=== PATIENT | male | born 1960 | race Caucasian/White ===

== ENCOUNTER 2021-11-27 18:22 | Inpatient (IN) | payer OTHER ==
[2021-11-27] MEDS ORDERED: SODIUM CHLORIDE 0.9% 500 ML 500 ML IV STA (19:03)
[2021-11-27] MEDS ORDERED: ASPIRIN 81 MG PO STA (19:03)
[2021-11-27] MEDS ORDERED: NITROGLYCERIN OINT 1 INCH/GM PACKET TOPICAL STA (19:03)
[2021-11-27 19:34] LABS: HCT 49.1 % (39.0-53.0); HGB 16.2 gm/dL (13.0-17.5); MCH 32.6 pg (25.0-35.0); MCV 98.9 fL (80.0-100.0); Platelet Count 231 k/uL (150-450); RBC 4.96 m/uL (4.30-5.90); RDW 13.2 % (11.5-15.5); WBC 11.7 k/uL (3.8-10.6)
[2021-11-27 19:37] LABS: ALT 37 U/L (4-49); AST 34 U/L (17-59); African American GFR (CKD) >90 (>60 ml/min/1.73 sqM); Blood Urea Nitrogen 13 mg/dL (9-20); Calcium 9.5 mg/dL (8.4-10.2); Non-African American GFR(CKD) >90 (>60 ml/min/1.73 sqM); Total Bilirubin 0.5 mg/dL (0.2-1.3)
--- NOTE | 2021-11-27 19:37 | ED ---
General Adult HPI - General Chief complaint: Chest Pain Stated complaint: chest pain Time Seen by Provider: 11/27/21 18:45 Source: patient, EMS, RN notes reviewed, old records reviewed Mode of arrival: EMS Limitations: no limitations - History of Present Illness Initial comments: This is a 61-year-old male who has a past medical history significant for smoking has a family history for heart disease and has high blood pressure and has high cholesterol. Patient states today he was exerting himself at work and he had chest pain in the anterior aspect of his chest and it was associated with shortness of breath. Patient stated he stopped sat down or rested after about 10 minutes it went away. Patient denied any difficulty breathing shortness of breath. Patient denied any diaphoretic episodes. Patient denies any nausea vomiting. Patient denies any abdominal pain. Patient denies headache patient denies numbness weakness patient denies any lightheadedness or dizziness. - Related Data Home Medications Medication Instructions Recorded Confirmed lisinopriL [Zestril] 20 mg PO DAILY 11/27/21 11/27/21 Allergies Allergy/AdvReac Type Severity Reaction Status Date / Time No Known Allergies Allergy Verified 11/27/21 19:43 Review of Systems ROS Statement: Those systems with pertinent positive or pertinent negative responses have been documented in the HPI. ROS Other: All systems not noted in ROS Statement are negative. General Exam - General Exam Comments Initial Comments: GENERAL: Patient is well-developed and well-nourished. Patient is nontoxic and well- hydrated and is in mild distress. ENT: Neck is soft and supple. No significant lymphadenopathy is noted. Oropharynx is clear. Moist mucous membranes. Neck has full range of motion without eliciting any pain. EYES: The sclera were anicteric and conjunctiva were pink and moist. Extraocular movements were intact and pupils were equal round and reactive to light. Ey elids were unremarkable. PULMONARY: Unlabored respirations. Good breath sounds bilaterally. No audible rales rhonchi or wheezing was noted. CARDIOVASCULAR: There is a regular rate and rhythm without any murmurs gallops or rubs. ABDOMEN: Soft and nontender with normal bowel sounds. SKIN: Skin is clear with no lesions or rashes and otherwise unremarkable. NEUROLOGIC: Patient is alert and oriented x3. Cranial nerves II through XII are grossly intact. Motor and sensory are also intact. Normal speech, volume and content. Symmetrical smile. MUSCULOSKELETAL: Normal extremities with adequate strength and full range of motion. LYMPHATICS: No significant lymphadenopathy is noted PSYCHIATRIC: Normal psychiatric evaluation. Limitations: no limitations Course Vital Signs 11/27/21 18:45 Temperature 98.6 F Pulse Rate 90 Respiratory 18 Rate Blood Pressure 147/89 O2 Sat by Pulse 96 Oximetry Medical Decision Making - Medical Decision Making EKG shows sinus rhythm at 95 bpm NM interval 126 QRS is 102 QT interval 355 QTC is 408. Patient's EKG shows no ST segment elevation or depression. Chest x-ray shows no acute abnormalities. Patient's been chest pain-free throughout her stay. I spoke with Dr. Kevin Rojas he agreed to admit the patient admitted the patient wrote admitting orders and I consult cardiology. - Lab Data Result diagrams: 11/27/21 19:06 11/27/21 19:06 Lab Results 11/27/21 11/27/21 11/27/21 Range/Units 19:06 19:06 19:06 WBC 11.7 H (3.8-10.6) k/uL RBC 4.96 (4.30-5.90) m/uL Hgb 16.2 (13.0-17.5) gm/dL Hct 49.1 (39.0-53.0) % MCV 98.9 (80.0-100.0) fL MCH 32.6 (25.0-35.0) pg MCHC 33.0 (31.0-37.0) g/dL RDW 13.2 (11.5-15.5) % Plt Count 231 (150-450) k/uL MPV 8.0 PT 10.6 (9.0-12.0) sec INR 1.0 (<1.2) APTT 25.9 (22.0-30.0) sec Sodium 138 (137-145) mmol/L Potassium 4.0 (3.5-5.1) mmol/L Chloride 106 (98-107) mmol/L Carbon Dioxide 24 (22-30) mmol/L Anion Gap 8 mmol/L BUN 13 (9-20) mg/dL Creatinine 0.80 (0.66-1.25) mg/dL Est GFR (CKD-EPI)AfAm >90 (>60 ml/min/1.73 sqM) Est GFR (CKD-EPI)NonAf >90 (>60 ml/min/1.73 sqM) Glucose 101 H (74-99) mg/dL Calcium 9.5 (8.4-10.2) mg/dL Magnesium 1.8 (1.6-2.3) mg/dL Total Bilirubin 0.5 (0.2-1.3) mg/dL AST 34 (17-59) U/L ALT 37 (4-49) U/L Alkaline Phosphatase 87 (38-126) U/L Troponin I (0.000-0.034) ng/mL Total Protein 7.6 (6.3-8.2) g/dL Albumin 4.4 (3.5-5.0) g/dL 11/27/21 Range/Units 19:06 WBC (3.8-10.6) k/uL RBC (4.30-5.90) m/uL Hgb (13.0-17.5) gm/dL Hct (39.0-53.0) % MCV (80.0-100.0) fL MCH (25.0-35.0) pg MCHC (31.0-37.0) g/dL RDW (11.5-15.5) % Plt Count (150-450) k/uL MPV PT (9.0-12.0) sec INR (<1.2) APTT (22.0-30.0) sec Sodium (137-145) mmol/L Potassium (3.5-5.1) mmol/L Chloride (98-107) mmol/L Carbon Dioxide (22-30) mmol/L Anion Gap mmol/L BUN (9-20) mg/dL Creatinine (0.66-1.25) mg/dL Est GFR (CKD-EPI)AfAm (>60 ml/min/1.73 sqM) Est GFR (CKD-EPI)NonAf (>60 ml/min/1.73 sqM) Glucose (74-99) mg/dL Calcium (8.4-10.2) mg/dL Magnesium (1.6-2.3) mg/dL Total Bilirubin (0.2-1.3) mg/dL AST (17-59) U/L ALT (4-49) U/L Alkaline Phosphatase (38-126) U/L Troponin I 0.029 (0.000-0.034) ng/mL Total Protein (6.3-8.2) g/dL Albumin (3.5-5.0) g/dL Disposition Clinical Impression: Chest pain Disposition: ADMITTED IP TO THIS HOSP Referrals: Vaughn Garg MD [Primary Care Provider] - 1-2 days Time of Disposition: 20:12
[2021-11-27 19:40] LABS: Partial Thromboplastin Time 25.9 sec (22.0-30.0); Prothrombin Time 10.6 sec (9.0-12.0)
[2021-11-27 19:45] LABS: Albumin 4.4 g/dL (3.5-5.0); Alkaline Phosphatase 87 U/L (38-126); Anion Gap 8 mmol/L; Carbon Dioxide 24 mmol/L (22-30); Chloride 106 mmol/L (98-107); Glucose 101 mg/dL (74-99); Magnesium 1.8 mg/dL (1.6-2.3); Sodium 138 mmol/L (137-145); Total Protein 7.6 g/dL (6.3-8.2)
[2021-11-27] MEDS ORDERED: NITROGLYCERIN SL TABS 0.4 MG TAB SUBLINGUAL PRN (20:13)
--- NOTE | 2021-11-27 20:29 | XR ---
EXAMINATION TYPE: XR chest 2V DATE OF EXAM: 11/27/2021 7:43 PM COMPARISON: None TECHNIQUE: XR chest 2V Frontal and lateral views of the chest. CLINICAL INDICATION:Male, 61 years old with history of Chest Pain; FINDINGS: Lungs/Pleura: There is no evidence of pleural effusion, focal consolidation, or pneumothorax. Pulmonary vascularity: Unremarkable. Heart/mediastinum: Cardiomediastinal silhouette is unremarkable. Musculoskeletal: No acute osseous pathology. IMPRESSION: No acute cardiopulmonary disease/process.
[2021-11-27 20:30] LABS: Band Neutrophils % 1 %; Eosinophils # (M) 0.12 k/uL (0-0.7); Lymphocytes # (M) 1.87 k/uL (1.0-4.8); Monocytes # (M) 0.47 k/uL (0-1.0); Neutrophils % (M) 78 %; Nucleated Red Blood Cells 0 /100 WBC (0-0); Total Cells Counted 100
[2021-11-27 20:32] LABS: Anisocytosis (M) Present
[2021-11-27 20:33] LABS: Large Platelets Present
[2021-11-27] MEDS ORDERED: HEPARIN SODIUM 1,000 UN/ML (10ML VL) IV PRN (23:42)
[2021-11-27] MEDS ORDERED: HEPARIN SODIUM 1,000 UN/ML (10ML VL) IV ONE (23:42)
[2021-11-27] MEDS ORDERED: HEPARIN SOD,PORK IN 0.45% NACL 25,000 UNIT in 0.45% NACL 1 250ML.BAG IV SCH (23:45)
[2021-11-28] MEDS: NITROGLYCERIN OINT 1 INCH/GM PACKET TOPICAL SCH ×4 (00:03→18:09)
[2021-11-28 01:06] LABS: INR 1.1 (<1.2); Partial Thromboplastin Time 93.2 sec (22.0-30.0); Prothrombin Time 11.8 sec (9.0-12.0)
[2021-11-28 01:09] LABS: HCT 44.7 % (39.0-53.0); HGB 14.9 gm/dL (13.0-17.5); MCH 33.6 pg (25.0-35.0); MCHC 33.2 g/dL (31.0-37.0); MCV 101.2 fL (80.0-100.0); Macrocytosis Slight; Mean Platelet Volume 7.8; Platelet Count 216 k/uL (150-450); RBC 4.42 m/uL (4.30-5.90); WBC 8.5 k/uL (3.8-10.6)
[2021-11-28 02:05] LABS: Eosinophils # (M) 0.43 k/uL (0-0.7); Monocytes # (M) 0.26 k/uL (0-1.0); Neutrophils # (M) 4.42 k/uL (1.3-7.7); Neutrophils % (M) 52 %; Nucleated Red Blood Cells 0 /100 WBC (0-0); Total Cells Counted 100
[2021-11-28 02:06] LABS: Anisocytosis (M) Present
[2021-11-28] MEDS ORDERED: ACETAMINOPHEN TAB 325 MG TAB PO PRN (04:55)
--- NOTE | 2021-11-28 06:17 | HP ---
HISTORY AND PHYSICAL HISTORY OF PRESENT ILLNESS: 61 -year-old came in with family history of heart disease, hypertension, high cholesterol, chest pain anterior part of his chest, associated with shortness of breath. . Came to the hospital today with chest pain. MEDICATIONS: Home medicines: Lisinopril 20 mg daily. ALLERGIES: Negative. REVIEW OF SYMPTOMS: 14 point review of systems otherwise negative. PHYSICAL EXAMINATION: Vital signs stable. Afebrile. Well developed, well nourished, nontoxic. Normocephalic, atraumatic. Pupils equal, active. CARDIOVASCULAR S1, S2. LUNGS: Clear. HEMATOLOGY: Negative Homans. PSYCH: Fair mood and affect. NEUROLOGICAL: Cranial nerves are intact. Temp 98.6, pulse 90, respiratory 16 to 18, blood pressure 147/89. O2 96. EKG sinus rhythm. Chest x-ray is negative. ASSESSMENT AND PLAN: Atypical chest pain. Admit. Rule out myocardial infarction. Cardiology consult. Possible stress test. troponin and echo. MMODL / IJN: [id number] /
[2021-11-28 06:32] LABS: Partial Thromboplastin Time 27.9 sec (22.0-30.0)
[2021-11-28] MEDS ORDERED: ALPRAZolam 0.25 MG TAB PO PRN (08:41)
[2021-11-28] MEDS ORDERED: ATORVASTATIN 80 MG TAB PO STA (08:41)
[2021-11-28] MEDS ORDERED: ALPRAZolam 0.5 MG TAB PO PRN (08:41)
[2021-11-28] MEDS ORDERED: SODIUM CHLORIDE 0.9% 1,000 ML in EMPTY BAG 1 BAG IV SCH (08:45)
[2021-11-28] MEDS ORDERED: ASPIRIN 325 MG TAB PO SCH (09:00)
[2021-11-28] MEDS ORDERED: lisinopriL 20 MG TAB PO SCH (09:00)
[2021-11-28 09:16] LABS: Basophils # (A) 0.04 X 10*3/uL (0.00-0.10); Basophils % (A) 0.5 %; Eosinophils # (A) 0.34 X 10*3/uL (0.04-0.35); Eosinophils % (A) 4.3 %; HCT 42.7 % (39.6-50.0); HGB 14.5 g/dL (13.0-17.0); Immature Grans, Automated 0.3 %; Lymphocytes # (A) 2.34 X 10*3/uL (0.90-5.00); Lymphocytes % (A) 29.6 %; MCH 32.9 pg (27.0-32.0); MCV 96.8 fL (80.0-97.0); Mean Platelet Volume 10.2 fL (9.5-12.2); Monocytes # (A) 0.58 X 10*3/uL (0.20-1.00); Monocytes % (A) 7.3 %; NRBC Per 100 WBC 0 /100 WBCS (0.0-0.0); Neutrophils # (A) 4.58 X 10*3/uL (1.80-7.70); Platelet Count 200 X 10*3/uL (140-440); RBC 4.41 X 10*6/uL (4.40-5.60); RDW 13.7 % (11.5-14.5)
[2021-11-28 09:20] LABS: Chol/HDL Ratio 3.63 Ratio; LDL Cholesterol,Calculated 92.6 mg/dL (0.0-131.0)
--- NOTE | 2021-11-28 09:32 | P.CRDCN ---
History of Present Illness History of present illness: This is a 61 year old male with a past medical history of hypertension, chronic nicotine dependence (Smokes 1-2PPD), daily alcohol use (about 2-3 beers/liquor drinks per night), Family history of father had an VT at the age of 57, His brother also had an VT. 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 Denies history of cardiac testing. He presents to the ER with chest discomfort. Yesterday at work he had first episode of chest discomfort at 2pm. He was lifting heavy equipment, specifically a tank. He had dull chest discomfort on the left side of his chest radiating across his chest. He had associated shortness of breath and lightheadedness. He had 2 more episodes of the same chest discomfort with activity at work. Works on a farm. He denies associated diaphoresis, nausea, vomiting, syncope. He denies history of VT, CAD, Stroke or diabetes, or high cholesterol. On admission, Initial troponin was negative, repeat was 0.05, 0.04. DIAGNOSTICS EKG reveals sinus rhythm, heart rate 95, poor R wave progression, T wave inversion in lead III, no acute ST ST-T wave changes to suggest ischemia. Repeat EKG this morning with T wave flattening noted in leads I and aVL. Telemetry tracings indicate sinus mechanism, 60s-80s Chest xray no acute cardiopulmonary process Laboratory reviewed, troponin 0.029, 0.052, 0.042, d-dimer negative, WBC 7.9, hemoglobin 14.5, platelets 200, sodium 138, potassium 4.0, BUN 13, serum creatinine 0.8, triglycerides 120, LDL 92, cholesterol 161, HDL 44 Current cardiac medications include lisinopril 20 mg daily REVIEW OF SYSTEMS At the time of my exam: CONSTITUTIONAL: Denies fever or chills. CARDIOVASCULAR: Denies chest pain, shortness of breath, orthopnea, PND or palpitations. RESPIRATORY: Denies cough. GASTROINTESTINAL: Denies abdominal pain, diarrhea, constipation, nausea or vomiting. MUSCULOSKELETAL: Denies myalgias. NEUROLOGIC: Denies numbness, tingling, headacbe or weakness. ENDOCRINE: Denies fatigue, weight change, polydipsia or polyurina. GENITOURINARY: Denies burning, hematuria or urgency with micturation. HEMATOLOGIC: Denies history of anemia or bleeding. PHYSICAL EXAMINATION Blood pressure 147/80, heart 67, afebrile, saturations 99% on room air CONSTITUTIONAL: No apparent distress. HEENT: Head is normocephalic. Pupils are equal, round. Sclerae anicteric. Mucous membranes of the mouth are moist. No JVD. No carotid bruit. CHEST EXAMINATION: Lungs are clear to auscultation. No chest wall tenderness is noted on palpation or with deep breathing. HEART EXAMINATION: Regular rate and rhythm. S1, S2 heard. No murmurs, gallops or rub. ABDOMEN: Soft, nontender. Positive bowel sounds. EXTREMITIES: 2+ peripheral pulses, no lower extremity edema and no calf tenderness. NEUROLOGIC EXAMINATION: Patient is awake, alert and oriented x3. ASSESSMENT NSTEMI Hypertension Chronic nicotine dependence Daily alcohol use Family history of coronary artery disease PLAN -Obtain 2D echocardiogram and doppler study to assess cardiac structure and function. -Recommend cardiac catheterization at this time. Patient is agreeable. -I have discussed the risks, benefits and alternative therapies for the above- mentioned procedure and for both sedation/analgesia as well as necessary blood product administration, if indicated, as they pertain to this patient. The patient has indicated understanding and acceptance of the risks and procedures discussed. Questions have been answered appropriately and he is agreeable to move forward with the above-stated procedure. -Plan for cardiac catheterization with Dr. Huang today -Further recommendations based on clinical course Nurse practitioner note has been reviewed by physician. Signing provider agrees with the documented findings, assessment, and plan of care. 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 resulting in many ortho sx's History of Any Multi-Drug Resistant Organisms: None Reported Additional Past Surgical History / Comment(s): in 2011 pt broke left arm, had plate put in Past Anesthesia/Blood Transfusion Reactions: No Reported Reaction Smoking Status: Current every day smoker Past Alcohol Use History: Occasional Medications and Allergies Home Medications Medication Instructions Recorded Confirmed Type lisinopriL [Zestril] 20 mg PO DAILY 11/27/21 11/27/21 History Allergies Allergy/AdvReac Type Severity Reaction Status Date / Time No Known Allergies Allergy Verified 11/27/21 19:43 Physical Exam Vitals: Vital Signs Temp Pulse Pulse Resp BP BP BP 11/28/21 07:05 97.5 F L 67 16 147/80 11/28/21 00:55 98.4 F 78 18 151/80 11/27/21 23:14 98.3 F 78 18 132/74 11/27/21 21:55 98.7 F 80 18 139/77 11/27/21 18:45 98.6 F 90 18 147/89 Pulse Ox 11/28/21 07:05 99 11/28/21 00:55 98 11/27/21 23:14 97 11/27/21 21:55 96 11/27/21 18:45 96 Intake and Output 11/27/21 11/28/21 11/28/21 22:59 06:59 14:59 Other: Voiding Method Toilet # Voids 2 Weight 83.915 kg Results 11/28/21 05:54 11/27/21 19:06 Cardiac Enzymes 11/27/21 11/27/21 11/27/21 Range/Units 19:06 19:06 21:59 AST 34 (17-59) U/L Troponin I 0.029 0.052 H* (0.000-0.034) ng/mL 11/28/21 Range/Units 00:32 AST (17-59) U/L Troponin I 0.042 H* (0.000-0.034) ng/mL Coagulation 11/27/21 11/28/21 11/28/21 Range/Units 19:06 00:32 05:54 PT 10.6 11.8 11.0 (9.0-12.0) sec APTT 25.9 93.2 H 27.9 (22.0-30.0) sec CBC 11/27/21 11/28/21 Range/Units 19:06 00:32 WBC 11.7 H 8.5 (3.8-10.6) k/uL RBC 4.96 4.42 (4.30-5.90) m/uL Hgb 16.2 14.9 (13.0-17.5) gm/dL Hct 49.1 44.7 (39.0-53.0) % Plt Count 231 216 (150-450) k/uL Comprehensive Metabolic Panel 11/27/21 Range/Units 19:06 Sodium 138 (137-145) mmol/L Potassium 4.0 (3.5-5.1) mmol/L Chloride 106 (98-107) mmol/L Carbon Dioxide 24 (22-30) mmol/L BUN 13 (9-20) mg/dL Creatinine 0.80 (0.66-1.25) mg/dL Glucose 101 H (74-99) mg/dL Calcium 9.5 (8.4-10.2) mg/dL AST 34 (17-59) U/L ALT 37 (4-49) U/L Alkaline Phosphatase 87 (38-126) U/L Total Protein 7.6 (6.3-8.2) g/dL Albumin 4.4 (3.5-5.0) g/dL Current Medications Generic Name Dose Route Start Last Admin Trade Name Freq PRN Reason Stop Dose Admin Acetaminophen 650 mg 11/28/21 04:55 11/28/21 05:17 Acetaminophen Tab 325 Mg Tab PO 650 mg Q6HR PRN Administration Fever and/ or Pain Aspirin 325 mg 11/28/21 09:00 Aspirin 325 Mg Tab PO DAILY [facility] Heparin Sodium (Porcine) 0 unit 11/27/21 23:42 Heparin Sodium 1,000 Un/Ml (10ml Vl) IV PER PROTOCOL PRN Low PTT Protocol Heparin Sodium/Sodium Chloride 250 mls @ 10 mls/hr 11/27/21 23:45 11/27/21 23:56 25,000 unit/ Sodium Chloride IV 11.9168 units/kg/hr .Q24H MAISHA 10 mls/hr Administration Protocol 11.9168 UNITS/KG/HR Lisinopril 20 mg 11/28/21 09:00 Lisinopril 20 Mg Tab PO DAILY MAISHA Nitroglycerin 0.4 mg 11/27/21 20:13 Nitroglycerin Sl Tabs 0.4 Mg Tab SUBLINGUAL Q5M PRN Chest Pain Nitroglycerin 1 inch 11/28/21 00:00 11/28/21 05:16 Nitroglycerin Oint 1 Inch/Gm Packet TOPICAL Not Given Q6HR [facility] Intake and Output 11/27/21 11/28/21 11/28/21 22:59 06:59 14:59 Other: Voiding Method Toilet # Voids 2 Weight 83.915 kg 11/28/21 00:32 11/27/21 19:06
[2021-11-28] MEDS ORDERED: LIDOCAINE 1% INJ 10MG/ML (20 ML MDV) ONE (10:32)
[2021-11-28] MEDS ORDERED: HEPARIN SODIUM 1,000 UN/ML (10ML VL) ONE (10:33)
[2021-11-28] MEDS ORDERED: fentaNYL (PF) 50 MCG/ML 2 ML AMP ONE (10:33)
[2021-11-28] MEDS ORDERED: VERAPAMIL 2.5 MG/ML 2 ML AMP ONE (10:33)
[2021-11-28] MEDS ORDERED: MIDAZOLAM 2 MG/2 ML VIAL IV ONE (10:42)
[2021-11-28] MEDS ORDERED: fentaNYL (PF) 50 MCG/ML 2 ML AMP IV ONE (10:42)
[2021-11-28] MEDS ORDERED: LIDOCAINE 1% INJ 10MG/ML (20 ML MDV) SQ ONE (10:44)
[2021-11-28] MEDS ORDERED: IV FLUID CONTINUATION 1,000 ML IV ONE ×2 (10:45)
[2021-11-28] MEDS ORDERED: VERAPAMIL SYRINGE (5 MG/10 ML) INTRAARTER ONE (10:46)
[2021-11-28] MEDS ORDERED: HEPARIN SODIUM 1,000 UN/ML (10ML VL) IV ONE (10:50)
[2021-11-28] MEDS ORDERED: IOPAMIDOL-370 125ML BTL INJ ONE (10:57)
[2021-11-28] MEDS ORDERED: RX INFO: IV CONTRAST WAS GIVEN 1 EACH MISC MISCELLANE PRN (11:26)
[2021-11-28] MEDS ORDERED: SODIUM CHLORIDE 0.9% 1,000 ML IV SCH (11:30)
--- NOTE | 2021-11-28 11:30 | P.CARDCATH ---
Date of Procedure: 11/28/21 Preoperative Diagnosis: Unstable angina Postoperative Diagnosis: Mild to moderate disease in the mid RCA Procedure(s) Performed: Left heart catheterization without left ventriculography Description of Procedure: HISTORY: This is a 61-year-old gentleman with history of smoking and family services ischemic heart disease who was admitted to the hospital with chest pain with mildly elevated troponins. EKGs did not reveal any acute changes. Patient is advised to have a cardiac catheterization for definitive diagnosis CONSENT:I have discussed the risks, benefits and alternative therapies for the above-mentioned procedure and for both sedation/analgesia as well as necessary blood product administration, if indicated, as they pertain to this patient. The patient has indicated understanding and acceptance of the risks and p rocedures discussed. PROCEDURE: Patient was brought to the lab in a fasting state. Patient was given some IV sedation. The right wrist is infiltrated with lidocaine and right radial artery was entered using Seldinger technique. A 6-Tajik catheter was left in place and selective coronary arteriography was performed. Patient tolerated the procedure well. TR band was applied for hemostasis. No immediate complications were noted and patient was transferred to [facility] in a stable condition Conscious Sedation: Versed 1mg Fentanyl 50 micrograms Duration 15minutes HEMODYNAMICS: Aortic pressure is about 110/70. The left ventricle end-diastolic pressure is 5-10. There was no gradient across the aortic valve SELECTIVE CORONARY ARTERIOGRAPHY: LEFT MAIN: Long and free of any occlusive disease THE LEFT ANTERIOR DESCENDING CORONARY ARTERY:. Good caliber vessel reaching apex. Gives rise to good-sized diagonal and septal branches. The LAD and branches are free of occlusive disease THE LEFT CIRCUMFLEX AND IS CORONARY ARTERY:. Small to moderate caliber vessel and nondominant, gives rise to good-sized OM branch. The circumflex and branches are free of occlusive disease THE RIGHT CORONARY ARTERY:. This is a dominant vessel and effusion caliber . Has about 50% stenosis in the midportion. The rest of the vessel is free of occlusive disease LEFT VENTRICULOGRAPHY: not performed FINAL IMPRESSION: Noncritical focal disease in the midright coronary artery of about 50%. Rest of the coronary system is free of occlusive disease PLAN: maximal medical therapy and this factor modification PROGNOSIS: Fair
[2021-11-28 15:46] VITALS: BP 137/79; PULSE 69; RESP 18; TEMP 97.8
--- NOTE | 2021-11-28 16:26 | CA ---
Transthoracic Echo Report Name: Antoni Zhang Age: 61 Gender: M : 1960 Exam Date: 11/28/2021 08:32 Exam Location: [facility] Echo Ht (in): 66 Wt (lb): 185 Ordering Physician: Kevin Rojas MD Attending/Referring Phys: [employer] Teacher Surekha Potter RDCS Procedure CPT: Indications: cad Cardiac Hx: Technical Quality: Good Contrast 1: Total Dose (mL): Contrast 2: Total Dose (mL): MEASUREMENTS (Male / Female) Normal Values 2D ECHO LV Diastolic Diameter PLAX 3.6 cm 4.2 - 5.9 / 3.9 - 5.3 cm LV Systolic Diameter PLAX 1.8 cm IVS Diastolic Thickness 1.1 cm 0.6 - 1.0 / 0.6 - 0.9 cm LVPW Diastolic Thickness 1.3 cm 0.6 - 1.0 / 0.6 - 0.9 cm LV Relative Wall Thickness 0.7 RV Internal Dim ED PLAX 2.5 cm LVOT Diameter 1.7 cm M-MODE Aortic Root Diameter MM 2.7 cm LA Systolic Diameter MM 3.6 cm LA Ao Ratio MM 1.3 MV E Point Septal Separation 0.6 cm AV Cusp Separation MM 2.2 cm DOPPLER AV Peak Velocity 191.5 cm/s AV Peak Gradient 14.7 mmHg AV Mean Velocity 121.1 cm/s AV Mean Gradient 6.8 mmHg AV Velocity Time Integral 42.5 cm AI Peak Velocity 389.8 cm/s AI Peak Gradient 60.8 mmHg AI Pressure Half Time 1490.0 ms LVOT Peak Velocity 108.5 cm/s LVOT Peak Gradient 4.7 mmHg AV Area Cont Eq pk 1.3 cm MV Area PHT 2.5 cm MR Peak Velocity 398.3 cm/s MR Peak Gradient 63.5 mmHg Mitral E Point Velocity 120.3 cm/s Mitral A Point Velocity 106.5 cm/s Mitral E to A Ratio 1.1 MV Deceleration Time 298.4 ms MV E' Velocity 9.0 cm/s Mitral E to MV E' Ratio 13.4 TR Peak Velocity 215.5 cm/s TR Peak Gradient 18.6 mmHg Right Ventricular Systolic Press 27.1 mmHg FINDINGS Left Ventricle Normal left ventricular size, Moderate wall thickness, systolic function with no obvious regional wall motion abnormalities. Normal left ventricular diastolic filling pattern for age. The ejection fraction is visually estimated at 55-60 %. Right Ventricle The right ventricle is normal in size and function. Right Atrium The right atrium is normal in size. Left Atrium The left atrium is normal in size and volume. Mitral Valve Structurally normal mitral valve without significant stenosis or prolapse. There is mild mitral regurgitation. Aortic Valve Mildly thickened aortic valve without significant sclerosis or stenosis. There is mild aortic regurgitation. Tricuspid Valve Structurally normal tricuspid valve without significant stenosis. Mild tricuspid regurge. Pulmonary artery systolic pressure is normal. Pulmonic Valve Structurally normal pulmonic valve without significant stenosis. There is no pulmonic regurgitation. Pericardium Normal pericardium without effusion. Aorta Normal aortic root dimension. CONCLUSIONS #1. Normal left ventricular size with moderate concentric hypertrophy. #2. Mild mitral and aortic regurgitation and mild tricuspid regurgitation. #3. No pericardial effusion Previewed by: Dr. Laura Huang MD (Electronically Signed) Final Date: 28 November 2021 11:23
[2021-11-29] MEDS ORDERED: HEPARIN SODIUM,PORCINE 10,000 UNIT in SODIUM CHLORIDE 0.9% 1,000 ML IRRIGATION PRN (07:00)
[2021-11-29] MEDS ORDERED: HEPARIN SODIUM,PORCINE 2,500 UNIT in SODIUM CHLORIDE 0.9% 250 ML IRRIGATION PRN (07:00)
== END 2021-11-28 20:03 | disposition home or self-care (01) | DRG 287 ==
LOC: EC 18:22 → 6NMEDSUR 20:13 → OBSVTOIN 11-28 13:31
PROVIDERS: ADMIT Family Medicine; ATTEND Family Medicine
PROC: B2111ZZ Fluoroscopy of Multiple Coronary Arteries using Low Osmolar Contrast (ICD-10-PCS; 2021-11-28)
PROC: 4A023N7 Measurement of Cardiac Sampling and Pressure, Left Heart, Percutaneous Approach (ICD-10-PCS; principal; 2021-11-28 10:50)
DX: I25.10 Atherosclerotic heart disease of native coronary artery without angina pectoris (principal); R07.89 Other chest pain; F17.210 Nicotine dependence, cigarettes, uncomplicated; I10 Essential (primary) hypertension; X50.0XXA Overexertion from strenuous movement or load, initial encounter; Z79.899 Other long term (current) drug therapy; Z82.49 Family history of ischemic heart disease and other diseases of the circulatory system; I08.1 Rheumatic disorders of both mitral and tricuspid valves
CPT/HCPCS: 36415; 71046; 80053; 80061; 83735; 84484; 85025; 85379; 85610; 85730; 93005; 93306; 93458; 99285